=== PATIENT | female | born 2000 ===

== ENCOUNTER → 2020-04-15 10:44 | Outpatient (BNVA) | payer OTHER, SELFPAY | PROVIDERS: Visit Provider Obstetrics & Gynecology | DX: Z76.89 Persons encountering health services in other specified circumstances (principal) ==

== ENCOUNTER 2020-08-06 01:15 | Emergency (ER) | payer OTHER, SELFPAY ==
[2020-08-06 01:44] VITALS: BP 111/73; PULSE 91; RESP 15; TEMP 37.1; O2SAT 99; BMI 19.3
[2020-08-06 02:41] LABS: Basophils Percent Auto 0.4 % (0-2); Eosinophils Absolute Auto 0.1 X10*3/uL (0.0-0.4); Eosinophils Percent Auto 1.5 % (0-4); Hematocrit 36.7 % (37-47); Hemoglobin 12.5 g/dl (12.0-16.0); Imm Gran Abs Auto 0.01 X10*3/uL (0.00-0.03); Imm Gran Pct Auto 0.1 % (0.0-0.4); Lymphocytes Absolute Auto 1.7 X10*3/uL (1.2-4.9); Lymphocytes Percent Auto 25.1 % (20-40); MANUAL DIFF FLAG NO; Mean Corpuscular HGB Conc 34.1 g/dl (31.0-35.0); Mean Corpuscular Volume 96.8 fL (80-98); Mean Platelet Volume 10.4 fL (9.4-12.3); Monocytes Absolute Auto 0.4 X10*3/uL (0.1-1.2); Monocytes Percent Auto 5.2 % (2-11); Neutrophils Absolute Auto 4.6 X10*3/uL (2.0-8.3); Neutrophils Percent Auto 67.7 % (45-73); Platelet Count 261 X10*3/uL (160-400); Red Blood Count 3.79 X10*6/uL (4.20-5.50); White Blood Count 6.9 X10*3/uL (4.8-10.8)
[2020-08-06 02:43] LABS: Glucose Urine UA NEG (NEG); Leukocyte Esterase Urine NEG (NEG); Nitrite Urine NEG (NEG); PH 6.5 (5.0-8.0); Specific Gravity - Urine 1.015 (1.005-1.025); Urine Blood 3+ (NEG); Urine Ketones NEG (NEG); Urine Protein NEG (NEG-TRACE)
[2020-08-06 02:45] LABS: Appearance Urine HAZY; Color Urine YELLOW
[2020-08-06 02:50] LABS: Bacteria Urine 2+ /LPF; Mucus Urine 1+ /LPF; Squamous Epithelial Cell Urine 1+ /LPF
[2020-08-06 03:25] LABS: Alanine Aminotransferase 13 U/L (0-31); Albumin Level 4.5 g/dL (3.5-5.0); Alkaline Phosphatase 83 U/L (39-117); Anion Gap 11 (12-20); Aspartate Amino Transferase 16 U/L (5-31); Bilirubin Total 0.4 mg/dL (0.0-1.0); Blood Urea Nitrogen 11 mg/dL (9-16); Calcium 8.7 mg/dL (8.4-10.2); Carbon Dioxide 24 mmol/L (22-29); Chloride 107 mmol/L (96-108); Creatinine Clr Calc Pharmacy 95.5; Estimated Glomerular Filt Rate > 60; Glucose Random 114 mg/dL (60-115); Lipase 48 U/L (8-78); Potassium 3.5 mmol/L (3.3-5.1); Sodium 138 mmol/L (135-145); Total Protein 7.2 g/dL (6.5-8.0)
--- NOTE | 2020-08-06 03:43 | ED_ITS ---
HPI - General Adult General Chief complaint: Abdominal Pain Stated complaint: BLEEDING/ABD PAIN Time Seen by Provider: 08/06/20 01:56 Source: patient Mode of arrival: ambulatory Limitations: no limitations History of Present Illness HPI narrative: 20-year-old female who presents emergency department for [place] luation of possible and vaginal bleeding. The patient states that her last menstrual period was 06/01/2020. She did a home test on 07/28/2020 which was positive. She states that yesterday evening at 11:00 p.m. she noted blood in her underwear. She then developed lower abdominal cramping similar to menstrual cramps and a pressure-like pain in her lower back. She states that when she urinated after that she noted blood in her urine. She states that when she wiped herself she also noted blood in the vaginal area. She states that the pain was 5 to 6/10. Pain was intermittent and at the time of evaluation she had no abdominal pain.She states she does have anxiety and her symptoms did make her feel lightheaded and dizzy especially after she saw blood. She denied fever, chills, chest pain, shortness of breath, nausea, vomiting, myalgias, arthralgias, change in bowel movements Related Data Home Medications Medication Instructions Recorded Confirmed No Known Home Meds 04/15/20 08/06/20 Allergies Allergy/AdvReac Type Severity Reaction Status Date / Time No Known Allergies Allergy Verified 08/06/20 01:51 Review of Systems Review of Systems: Yes all other systems are reviewed and are negative Neurologic: Reports Abnormal speech present [facility] Past Medical History [facility] Narrative: Past medical history significant for anxiety, she denies tobacco and alcohol use, she states that she occasionally smokes marijuana. Social History Social History (Updated 04/15/20 @ 11:32 by MIAH Vargas) Alcohol intake: never Smoking Status: Never smoker Use of substances other than those prescribed or required for medical reasons: Yes Substance Use Type: Marijuana Last Used Substance: Weeks (ago) Advance Directives: No Advance Directives Information Provided: No Sexual orientation: Straight/Heterosexual Gender identity: female Physical Exam Vital Signs: Vital Signs: Last Vital Signs Temp 98.8 F 08/06/20 01:44 Pulse 84 08/06/20 04:00 Resp 15 08/06/20 04:00 BP 110/71 02/19/21 04:00 Pulse Ox 99 08/06/20 04:00 Body Mass Index 19.3 Const: General: cooperative and healthy appearing Orientatio n/consciousness: oriented to person and oriented to place Limitations: no limitations HENMT: Head: Yes normal to inspection, Yes normocephalic and Yes atraumatic Ears: external ears normal General nose exam: Normal external nose present Face and sinus: Yes normal facial exam Mouth: Normal oral and palatal mucosa present Throat: Yes posterior oropharynx normal Eyes: Periorbital: periorbital findings normal Eyelids: Yes eyelids normal Conjunctivae: conjunctivae normal Sclerae: sclerae normal Corneas: corneas normal Pupils: Equal, round and reactive pupils present Direct Ophthalmoscopy: normal light reflex Neck: Neck: Yes full ROM, Yes no lymphadenopathy, Yes no meningeal signs, Yes trachea midline and Yes supple Chest: Chest palpation & inspection: normal inspection of the chest and normal palpation of entire chest wall Resp: Effort & Inspection: normal respiratory effort and able to speak in complete sentences Auscultation: clear to auscultation bilaterally Cardio: Rate: regular rate Rhythm: regular rhythm Heart sounds: S1 normal heart sound present, S2 normal heart sound present and no murmurs GI: Inspection: Yes normal to inspection Palpation (GI): Soft to palpation, Tenderness to palpation present (GI) in the RLQ ([id number]) and suprapubicly ([id number]), no guarding, not rigid and No hepatosplenomegaly present : General: Yes no CVA tenderness Back/Spine/Pelvis: Back: no CVA tenderness Cervical Spine: normal cervical lordosis Thoracic/Lumbar Spine: thoracic and lumbar spine normal to inspection Skin: Lesions: no lesions Rashes: no rashes Wounds: no wounds Neuro: General: oriented to person, oriented to place and no meningeal signs Cranial nerves: Yes Equal, round and reactive pupils present Cognition (Neuro): normal cognition Speech: Abnormal speech present Motor exam (neuro): 5/5 motor strength present throughout Extrem: General: Yes normal to inspection and Yes full ROM Psych: Appearance: well kempt Mental Status: mental status grossly normal Speech and movement: Normal speech and movement present Affect: normal affect Attitude: cooperative Thought process: Normal thought process present Thought content: Normal thought content present Course Course Course Narrative: 20-year-old female who presents emergency department for evaluation of lower abdominal cramping, back pain and vaginal bleeding. The patient did have a positive home test her last menstrual period was on 06/01/2020. I did order laboratory evaluation on this patient to include quantitative beta-hCG and ABO type. 0436: Patient's laboratory evaluation revealed a quantitative beta-hCG of 197, which is much lower than anticipated if the patient's LMP was 06/01/2020 with an estimated gestational age of 9 weeks. The rest of the patient's laboratory evaluation was unremarkable. The patient's blood type is B positive. I did discuss this finding with the patient. There are 2 possibilities. The patient may have had a miscarriage or the patient may be early on in her . The patient does have a follow-up appointment with her OBGYN on Sunday08/09/2020. Told her that she should get a repeat quantitative beta hCG at this time. She was given printed instructions on use carriage and I did discuss possibility of an ectopic with the patient as well. Patient was discharged home. Medical Decision Making Lab Data Result diagrams: 08/06/20 02:30 08/06/20 02:30 Labs: Lab Results 08/06/20 08/06/20 08/06/20 Range/Units 02:28 02:30 02:30 WBC 6.9 (4.8-10.8) X10*3/uL RBC 3.79 L (4.20-5.50) X10*6/uL Hgb 12.5 (12.0-16.0) g/dl Hct 36.7 L (37-47) % MCV 96.8 (80-98) fL MCH 33.0 (27.0-33.0) pg MCHC 34.1 (31.0-35.0) g/dl RDW 12.0 (11.0-16.0) % Plt Count 261 (160-400) X10*3/uL MPV 10.4 (9.4-12.3) fL Immature Gran % (Auto) 0.1 (0.0-0.4) % Neut % (Auto) 67.7 (45-73) % Lymph % (Auto) 25.1 (20-40) % [place] % (Auto) 5.2 (2-11) % Eos % (Auto) 1.5 (0-4) % Baso % (Auto) 0.4 (0-2) % Lymph # (Auto) 1.7 (1.2-4.9) X10*3/uL [place] # (Auto) 0.4 (0.1-1.2) X10*3/uL Eos # (Auto) 0.1 (0.0-0.4) X10*3/uL Baso # (Auto) 0.0 (0.0-0.2) X10*3/uL Abs Immat Gran (auto) 0.01 (0.00-0.03) X10*3/uL Absolute Neuts (auto) 4.6 (2.0-8.3) X10*3/uL Absolute Nucleated RBC 0.000 (0.0-0.012) X10*3/uL Nucleated RBC % (auto) 0.0 (0.0-0.2) /100WBC Sodium 138 (135-145) mmol/L Potassium 3.5 (3.3-5.1) mmol/L Chloride 107 (96-108) mmol/L Carbon Dioxide 24 (22-29) mmol/L Anion Gap 11 L (12-20) BUN 11 (9-16) mg/dL Creatinine 0.63 (0.5-1.4) mg/dL Estim Creat Clear Calc 95.5 Estimated GFR > 60 Random Glucose 114 (60-115) mg/dL Calcium 8.7 (8.4-10.2) mg/dL Total Bilirubin 0.4 (0.0-1.0) mg/dL AST 16 (5-31) U/L ALT 13 (0-31) U/L Alkaline Phosphatase 83 (39-117) U/L Total Protein 7.2 (6.5-8.0) g/dL Albumin 4.5 (3.5-5.0) g/dL Lipase 48 (8-78) U/L Beta HCG, Quant 197 mIU/mL Urine Color Urine Appearance Urine pH (5.0-8.0) Ur Specific [place] (1.005-1.025) Urine Protein (NEG-TRACE) MG/DL Urine Glucose (UA) (NEG) MG/DL Urine Ketones (NEG) MG/DL Urine Blood (NEG) Urine Nitrite (NEG) Ur Leukocyte Esterase (NEG) Urine RBC (0) /HPF Urine WBC (0-4) /HPF Ur Squamous Epith Cells /LPF Urine Bacteria /LPF Urine Mucus /LPF Blood Type B Positive 08/06/20 Range/Units 02:30 WBC (4.8-10.8) X10*3/uL RBC (4.20-5.50) X10*6/uL Hgb (12.0-16.0) g/dl Hct (37-47) % MCV (80-98) fL MCH (27.0-33.0) pg MCHC (31.0-35.0) g/dl RDW (11.0-16.0) % Plt Count (160-400) X10*3/uL MPV (9.4-12.3) fL Immature Gran % (Auto) (0.0-0.4) % Neut % (Auto) (45-73) % Lymph % (Auto) (20-40) % [place] % (Auto) (2-11) % Eos % (Auto) (0-4) % Baso % (Auto) (0-2) % Lymph # (Auto) (1.2-4.9) X10*3/uL [place] # (Auto) (0.1-1.2) X10*3/uL Eos # (Auto) (0.0-0.4) X10*3/uL Baso # (Auto) (0.0-0.2) X10*3/uL Abs Immat Gran (auto) (0.00-0.03) X10*3/uL Absolute Neuts (auto) (2.0-8.3) X10*3/uL Absolute Nucleated RBC (0.0-0.012) X10*3/uL Nucleated RBC % (auto) (0.0-0.2) /100WBC Sodium (135-145) mmol/L Potassium (3.3-5.1) mmol/L Chloride (96-108) mmol/L Carbon Dioxide (22-29) mmol/L Anion Gap (12-20) BUN (9-16) mg/dL Creatinine (0.5-1.4) mg/dL Estim Creat Clear Calc Estimated GFR Random Glucose (60-115) mg/dL Calcium (8.4-10.2) mg/dL Total Bilirubin (0.0-1.0) mg/dL AST (5-31) U/L ALT (0-31) U/L Alkaline Phosphatase (39-117) U/L Total Protein (6.5-8.0) g/dL Albumin (3.5-5.0) g/dL Lipase (8-78) U/L Beta HCG, Quant mIU/mL Urine Color YELLOW Urine Appearance HAZY Urine pH 6.5 (5.0-8.0) Ur Specific [place] 1.015 (1.005-1.025) Urine Protein NEG (NEG-TRACE) MG/DL Urine Glucose (UA) NEG (NEG) MG/DL Urine Ketones NEG (NEG) MG/DL Urine Blood 3+ H (NEG) Urine Nitrite NEG (NEG) Ur Leukocyte Esterase NEG (NEG) Urine RBC 1-4 (0) /HPF Urine WBC 1-4 (0-4) /HPF Ur Squamous Epith Cells 1+ /LPF Urine Bacteria 2+ /LPF Urine Mucus 1+ /LPF Blood Type Discharge Plan Discharge Clinical Impression: Vaginal bleeding affecting early Patient Disposition: Home, Self-Care Instructions: Threatened Miscarriage (ED) Additional Instructions: Your quantitative beta hCG ( test that gives you a number) was 197. This is much lower than expected if your last menstrual period was actually on 06/01/2020. There are 2 possibilities for this low quantitative test. You may be having a miscarriage or you may be early on in your . You will need a repeat quantitative test when you see your OBGYN on 08/09/2020. Your CBC, comprehensive metabolic panel and urinalysis test or normal. Your blood type is B positive. Follow the threatened miscarriage instructions. Please return to the emergency department if your symptoms get worse or if you develop any new symptoms that are concerning to you. Prescriptions: No Action No Known Home Meds RF: 0
[2020-08-06 04:00] VITALS: BP 110/71; PULSE 84; RESP 15; O2SAT 99
[2020-08-06 04:21] LABS: HCG Quantitative 197 mIU/mL
== END 2020-08-06 05:01 | disposition home or self-care (01) ==
PROVIDERS: Emergency Provider Emergency Medicine Emergency Medical Services; PCP Family Medicine
DX: O20.0 Threatened abortion (principal)
CPT/HCPCS: 36415; 80053; 81001; 83690; 84702; 85025; 86900; 86901; 99283; 99285

== ENCOUNTER 2020-08-07 14:34 | Emergency (ER) | payer OTHER, SELFPAY ==
--- NOTE | ~2020-08-07 | US_ITS ---
EXAMINATION: US OBSTETRICAL ULTRASOUND CLINICAL INFORMATION: 9 weeks . Vaginal bleeding. COMPARISON: None. LMP: Unknown. TECHNIQUE: Transvaginal and transabdominal imaging of the female pelvis was performed utilizing both grayscale and color Doppler technique. FINDINGS: The uterus is anteverted. 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 No gestational sac is identified within either endometrial stripe. The endometrial stripe on average measures 0.3 cm. MATERNAL ADNEXA: The right maternal ovary measures 3.7 x 1.7 x 1.6 cm. The left maternal ovary measures 5.0 x 2.7 x 2.7 cm. Multiple follicles are seen with a dominant cyst measuring 2.0 x 1.6 x 1.7 cm. There is no significant maternal adnexal mass. No maternal pelvic ascites. US/US OB transvaginal IMPRESSION: 1. No gestational sac is identified. Correlation with beta hCG is recommended as ectopic is not excluded in this patient reportedly 9 weeks . 2. 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
--- NOTE | ~2020-08-07 | US_ITS ---
EXAMINATION: US OBSTETRICAL ULTRASOUND CLINICAL INFORMATION: 9 weeks . Vaginal bleeding. COMPARISON: None. LMP: Unknown. TECHNIQUE: Transvaginal and transabdominal imaging of the female pelvis was performed utilizing both grayscale and color Doppler technique. FINDINGS: The uterus is anteverted. 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 No gestational sac is identified within either endometrial stripe. The endometrial stripe on average measures 0.3 cm. MATERNAL ADNEXA: The right maternal ovary measures 3.7 x 1.7 x 1.6 cm. The left maternal ovary measures 5.0 x 2.7 x 2.7 cm. Multiple follicles are seen with a dominant cyst measuring 2.0 x 1.6 x 1.7 cm. There is no significant maternal adnexal mass. No maternal pelvic ascites. US/US OB <= 14 weeks fetus IMPRESSION: 1. No gestational sac is identified. Correlation with beta hCG is recommended as ectopic is not excluded in this patient reportedly 9 weeks . 2. 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
[2020-08-07 14:37] VITALS: BP 136/91; PULSE 120; RESP 18; TEMP 36.7; O2SAT 98; BMI 19.3
[2020-08-07 15:08] LABS: Glucose Urine UA NEG (NEG); Leukocyte Esterase Urine NEG (NEG); Nitrite Urine NEG (NEG); PH 6.5 (5.0-8.0); Urine Blood 3+ (NEG); Urine Ketones NEG (NEG); Urine Protein NEG (NEG-TRACE)
[2020-08-07 15:11] LABS: Appearance Urine CLEAR; Color Urine YELLOW; UPreg QC Valid YES; Urine Pregnancy POSITIVE (NEGATIVE)
[2020-08-07 15:19] LABS: Bacteria Urine 1+ /LPF; Squamous Epithelial Cell Urine 1+ /LPF; WBC Urine 0 /HPF (0-4)
[2020-08-07 16:48] LABS: MANUAL DIFF FLAG NO
[2020-08-07 16:50] LABS: Basophils Percent Auto 0.5 % (0-2); Eosinophils Absolute Auto 0.1 X10*3/uL (0.0-0.4); Eosinophils Percent Auto 1.5 % (0-4); Hematocrit 38.3 % (37-47); Hemoglobin 13.1 g/dl (12.0-16.0); Imm Gran Abs Auto 0.02 X10*3/uL (0.00-0.03); Imm Gran Pct Auto 0.3 % (0.0-0.4); Lymphocytes Absolute Auto 1.9 X10*3/uL (1.2-4.9); Lymphocytes Percent Auto 25.7 % (20-40); Mean Corpuscular HGB Conc 34.2 g/dl (31.0-35.0); Mean Corpuscular Hemoglobin 32.8 pg (27.0-33.0); Mean Corpuscular Volume 95.8 fL (80-98); Mean Platelet Volume 10.7 fL (9.4-12.3); Monocytes Absolute Auto 0.5 X10*3/uL (0.1-1.2); Neutrophils Absolute Auto 4.9 X10*3/uL (2.0-8.3); Platelet Count 269 X10*3/uL (160-400); Red Cell Distribution Width 11.9 % (11.0-16.0); White Blood Count 7.4 X10*3/uL (4.8-10.8)
[2020-08-07 17:14] LABS: Anion Gap 12 (12-20); Blood Urea Nitrogen 9 mg/dL (9-16); Calcium 9.3 mg/dL (8.4-10.2); Carbon Dioxide 25 mmol/L (22-29); Chloride 107 mmol/L (96-108); Creatinine Clr Calc Pharmacy 100.3; Estimated Glomerular Filt Rate > 60; Glucose Random 96 mg/dL (60-115); Sodium 140 mmol/L (135-145)
[2020-08-07 20:00] VITALS: BP 115/69; PULSE 105; RESP 18; TEMP 37; O2SAT 97
--- NOTE | 2020-08-07 20:05 | ED.PREGNANCY ---
HPI - General Chief complaint: Vaginal Bleeding Stated complaint: VAGINGAL BLEED Time Seen by Provider: 08/07/20 16:03 Source: patient Mode of arrival: ambulatory Limitations: no limitations History of Present Illness HPI Narrative: 20-year-old female approximately 9 weeks presents with vaginal bleeding with blood clots. Was evaluated here yesterday for similar circumstances. She was given discharge instructions for a miscarriage, she presents here because she feels that the bleeding has not subsided. Complaint: vaginal bleeding Onset (ago): day(s) (3) Pain Consistency: constant Severity: moderate Relieving factors: none Associated symptoms: vaginal bleeding Vaginal bleeding: heavy and clots Patient : Yes Related Data : 1 Para: 0 Total number of abortions (spontaneous and elective): 0 Home Medications Medication Instructions Recorded Confirmed No Known Home Meds 04/15/20 08/06/20 Allergies Allergy/AdvReac Type Severity Reaction Status Date / Time No Known Allergies Allergy Verified 08/06/20 01:51 Review of Systems Review of Systems: Constitutional: No Fever, No Chills ENT/Mouth: No sore throat, No Rhinorrhea Eyes: No Eye Pain, No Redness Cardiovascular: No Chest Pain, No SOB Respiratory: No Cough, No Sputum, No Wheezing Gastrointestinal: positive Nausea, No Vomiting, No Diarrhea, positive abdominal pain, Genitourinary: positive irregular bleeding, No Dysuria, No Urinary Frequency, positive pelvic pain Musculoskeletal: No Myalgias Skin: No rash Neuro: No Weakness, No Headache Psych: No Anxiety/Panic, No Depression Heme/Lymph: No bruising, No Lymphadenopathy Endocrine: No Polyuria, No Polydipsia Yes all other systems are reviewed and are negative [facility] Past Medical History Attestation statement: The following information was validated with the patient. Source: old records reviewed : 1 Para: 0 Total number of abortions (spontaneous and elective): 0 Social History Social History Alcohol intake: never Smoking Status: Never smoker Substance Use Type: Marijuana Sexual orientation: Straight/Heterosexual Gender identity: female Physical Exam Vital Signs: Vital Signs: Last Vital Signs Temp 99.2 F 08/07/20 23:43 Pulse 109 H 08/07/20 23:43 Resp 18 08/07/20 23:43 BP 131/84 08/07/20 23:43 Pulse Ox 98 08/07/20 23:43 Body Mass Index 19.3 Appearance: Alert. Oriented X3. No acute distress. Eyes: Pupils equal, round and reactive to light. ENT: Pharynx normal. Neck: Normal inspection. Neck supple. CVS: Normal heart rate and rhythm. Pulses normal. Respiratory: No respiratory distress. Breath sounds normal. Abdomen: Soft and nontender. Skin: Skin warm and dry. Normal skin color. Normal skin turgor. Extremities: No lower extremity edema. Neuro: No motor deficit. No sensory deficit. : External Female Exam: normal external appearance and normal appearance of the urethra Speculum Exam - Vagina: normal appearance of the vagina, normal palpation, no foreign bodies, no lacerations, no lesions, vaginal bleeding and No tissue present in vagina Speculum Exam - Cervix: normal appearance of the cervix, Cervical os closed, Nulliparous cervix present and nontender Bimanual exam- vagina & uterus: normal palpation, No Cervical tenderness present and no cervical motion tenderness Bimanual Exam- Adnexa, other: normal adnexae OB/external & speculum: vaginal bleeding; no foreign bodies and no tissue noted in vagina Course Course Course Narrative: 20-year-old female presents for a 2nd time this week for vaginal bleeding. Was seen yesterday for 1st trimester vaginal bleeding, exam and findings suggestive of miscarriage. Patient presents because bleeding and pain continues. Pelvic exam completed, RN at bedside as rail crew member, trichomoniasis, CT NG, and BV specimens collected. Plan is for Ob transvaginal first-trimester ultrasound. Ultrasound shows no intrauterine , no adnexal masses. Patient's presentation is highly suspicious of complete . Discussion with Dr. Mattson, repeat quant is 49, plan is for patient to follow-up with Dr Carey in 48 hours. Patient verbalized understanding of and agrees plan of care. Consultations Consultation #1: Srinivasan Time: 11:05 MDM - OB/Uterine Contractions MDM Narrative Medical decision making narrative: First trimester bleeding, threatened , complete Medical Records Attestation: I reviewed the patient's medical records. Lab Data Attestation: I reviewed the patient's lab results. Result diagrams: 08/07/20 16:23 08/07/20 16:23 Labs: Lab Results 08/07/20 08/07/20 08/07/20 Range/Units 14:57 16:23 16:23 WBC 7.4 (4.8-10.8) X10*3/uL RBC 4.00 L (4.20-5.50) X10*6/uL Hgb 13.1 (12.0-16.0) g/dl Hct 38.3 (37-47) % MCV 95.8 (80-98) fL MCH 32.8 (27.0-33.0) pg MCHC 34.2 (31.0-35.0) g/dl RDW 11.9 (11.0-16.0) % Plt Count 269 (160-400) X10*3/uL MPV 10.7 (9.4-12.3) fL Immature Gran % (Auto) 0.3 (0.0-0.4) % Neut % (Auto) 66.0 (45-73) % Lymph % (Auto) 25.7 (20-40) % [place] % (Auto) 6.0 (2-11) % Eos % (Auto) 1.5 (0-4) % Baso % (Auto) 0.5 (0-2) % Lymph # (Auto) 1.9 (1.2-4.9) X10*3/uL [place] # (Auto) 0.5 (0.1-1.2) X10*3/uL Eos # (Auto) 0.1 (0.0-0.4) X10*3/uL Baso # (Auto) 0.0 (0.0-0.2) X10*3/uL Abs Immat Gran (auto) 0.02 (0.00-0.03) X10*3/uL Absolute Neuts (auto) 4.9 (2.0-8.3) X10*3/uL Absolute Nucleated RBC 0.000 (0.0-0.012) X10*3/uL Nucleated RBC % (auto) 0.0 (0.0-0.2) /100WBC Sodium 140 (135-145) mmol/L Potassium 4.0 (3.3-5.1) mmol/L Chloride 107 (96-108) mmol/L Carbon Dioxide 25 (22-29) mmol/L Anion Gap 12 (12-20) BUN 9 (9-16) mg/dL Creatinine 0.60 (0.5-1.4) mg/dL Estim Creat Clear Calc 100.3 Estimated GFR > 60 Random Glucose 96 (60-115) mg/dL Calcium 9.3 D (8.4-10.2) mg/dL Beta HCG, Quant 49 mIU/mL Urine Color YELLOW Urine Appearance CLEAR Urine pH 6.5 (5.0-8.0) Ur Specific [place] 1.010 (1.005-1.025) Urine Protein NEG (NEG-TRACE) MG/DL Urine Glucose (UA) NEG (NEG) MG/DL Urine Ketones NEG (NEG) MG/DL Urine Blood 3+ H (NEG) Urine Nitrite NEG (NEG) Ur Leukocyte Esterase NEG (NEG) Urine RBC 1-4 (0) /HPF Urine WBC 0 (0-4) /HPF Ur Squamous Epith Cells 1+ /LPF Urine Bacteria 1+ /LPF Urine Test POSITIVE H (NEGATIVE) Imaging Data OB 1st trimester pelvic ultrasound: Attestation: I personally reviewed and interpreted this imaging study as follows: Radiologist's impression: EXAMINATION: US OBSTETRICAL ULTRASOUND CLINICAL INFORMATION: 9 weeks . Vaginal bleeding. COMPARISON: None. LMP: Unknown. TECHNIQUE: Transvaginal and transabdominal imaging of the female pelvis was performed utilizing both grayscale and color Doppler technique. FINDINGS: The uterus is anteverted. 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 No gestational sac is identified within either endometrial stripe. The endometrial stripe on average measures 0.3 cm. MATERNAL ADNEXA: The right maternal ovary measures 3.7 x 1.7 x 1.6 cm. The left maternal ovary measures 5.0 x 2.7 x 2.7 cm. Multiple follicles are seen with a dominant cyst measuring 2.0 x 1.6 x 1.7 cm. There is no significant maternal adnexal mass. No maternal pelvic ascites. US/US OB <= 14 weeks fetus IMPRESSION: 1. No gestational sac is identified. Correlation with beta hCG is recommended as ectopic is not excluded in this patient reportedly 9 weeks . 2. 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 Discharge Plan Discharge Clinical Impression: Complete Patient Disposition: Home, Self-Care Instructions: Miscarriage (ED) Additional Instructions: You were evaluated for vaginal bleeding with 1st trimester . Ultrasound indicates that you have had a complete miscarriage. You must follow-up with OBGYN in 48 hours. Your hCG beta quant on August 06 was 149, on August 07 level was 49. Your blood type is B positive. Please follow-up with Dr Mattson on Sunday. Thank you for choosing this emergency department for evaluation. Please follow-up with primary care physician as needed. Return to the emergency department for any new, concerning, or worsening symptoms. Prescriptions: No Action No Known Home Meds RF: 0 Referrals: Matthew Mattson MD [Physician] - 2 days (Complete ) Interventions: ED Discharge Assessment Last Done: 08/07/20 23:50 Discharge Date/Time: 08/07/20 23:51
[2020-08-07 22:12] VITALS: BP 125/76; PULSE 96; RESP 18; TEMP 37; O2SAT 99
--- NOTE | 2020-08-07 23:14 | P.CONOB_ITS ---
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 The patient came yesterday emergency room with bleeding and cramping and passed large amount of blood clots. HCG was done yesterday was 174 repeat hCG today dropped to 48. blood type is Rh positive. Since then the bleeding has slowed down and cramping is better cc:: CC: [facility] - Review of Systems Review of Systems ROS Unobtainable: All systems reviewed & are unremarkable except as noted in HPI and below OB PMFSH Social History Social History Alcohol intake: never Smoking Status: Never smoker Use of substances other than those prescribed or required for medical reasons: No Substance Use Type: Marijuana Advance Directives: No Advance Directives Information Provided: Yes Sexual orientation: Straight/Heterosexual Gender identity: female Meds Allergies Allergy/AdvReac Type Severity Reaction Status Date / Time No Known Allergies Allergy Verified 08/06/20 01:51 Home Medications Medication Instructions Recorded Confirmed Last Taken Type No Known Home Meds 04/15/20 08/06/20 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 Physical Exam Vitals Vital signs: Temp Pulse Resp BP Pulse Ox 98.6 F 96 18 125/76 99 08/07/20 22:12 08/07/20 22:12 08/07/20 22:12 08/07/20 22:12 08/07/20 22:12 Body Mass Index 19.3 Abdomen Auscultation/Inspection/Palpation: Other (Abdominal exam benign nontender no rebound per Maira Kerr NP) Additional Comments: Normal exam minimal blood per vagina no adnexal or uterine tenderness per Maira Kerr NP [employer]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 Labs CBC & Chem 7: 08/07/20 16:23 08/07/20 16:23 Labs: Short CBC 08/07/20 Range/Units 16:23 WBC 7.4 (4.8-10.8) X10*3/uL Hgb 13.1 (12.0-16.0) g/dl Hct 38.3 (37-47) % Plt Count 269 (160-400) X10*3/uL BMP 08/07/20 16:23 Sodium 140 Potassium 4.0 Chloride 107 Carbon Dioxide 25 BUN 9 Creatinine 0.60 Calcium 9.3 D Urine 08/07/20 Range/Units 14:57 Urine Color YELLOW Urine Appearance CLEAR Urine pH 6.5 (5.0-8.0) Ur Specific [place] 1.010 (1.005-1.025) Urine Protein NEG (NEG-TRACE) MG/DL Urine Glucose (UA) NEG (NEG) MG/DL Urine Test POSITIVE H (NEGATIVE) Assessment and Plan (1) Complete : Status: Acute Repeat hCG today is suggestive of complete SAB, Recommends hCG in 48 hours and follow-up in the office for evaluation and instructions to be given to the patient to call if pain or bleeding recurs to come back to the emergency room for evaluation prior to Sunday
[2020-08-07 23:33] LABS: HCG Quantitative 49 mIU/mL
[2020-08-07 23:43] VITALS: BP 131/84; PULSE 109; RESP 18; TEMP 37.3; O2SAT 98
[2020-08-08 08:50] LABS: CT PCR NOT DETECTED (Not Detect.); NG PCR NOT DETECTED (Not Detect.)
[2020-08-08 09:10] LABS: BV Int Neg Control Negative (Negative); BV Int Pos Control Positive (Positive)
== END 2020-08-07 23:51 | disposition home or self-care (01) ==
PROVIDERS: Nurse Practitioner Family; Emergency Provider Internal Medicine; PCP Family Medicine
DX: O03.9 Complete or unspecified spontaneous abortion without complication (principal); Z3A.09 9 weeks gestation of pregnancy
CPT/HCPCS: 36415; 76801; 76817; 80048; 81001; 81025; 84702; 85025; 87480; 87491; 87510; 87591; 87660; 99283; 99284

== ENCOUNTER 2020-08-09 12:08 | Outpatient (REF) | payer OTHER, SELFPAY ==
[2020-08-09 14:14] LABS: HCG Quantitative 13 mIU/mL
== END 2020-08-09 12:09 | disposition home or self-care (01) ==
LOC: HO.LAB 12:08
PROVIDERS: Visit Provider Obstetrics & Gynecology
DX: O03.9 Complete or unspecified spontaneous abortion without complication (principal); Z3A.00 Weeks of gestation of pregnancy not specified
CPT/HCPCS: 36415; 84702; 99212

== ENCOUNTER 2020-08-23 14:50 | Outpatient (REF) | payer OTHER, SELFPAY ==
[2020-08-23 16:01] LABS: HCG Quantitative < 2 mIU/mL
== END 2020-08-23 14:51 | disposition home or self-care (01) ==
LOC: HO.LAB 14:50
PROVIDERS: PCP Family Medicine; Visit Provider Advanced Practice Midwife
DX: O03.9 Complete or unspecified spontaneous abortion without complication (principal)
CPT/HCPCS: 36415; 84702

== ENCOUNTER → 2020-11-02 15:44 | Outpatient (BNVA) | payer OTHER, SELFPAY | PROVIDERS: PCP Family Medicine; Visit Provider Advanced Practice Midwife ==

== ENCOUNTER 2020-12-01 09:35 | Outpatient (REF) | payer OTHER, SELFPAY ==
[2020-12-01 13:49] LABS: CT PCR NOT DETECTED (Not Detect.); NG PCR NOT DETECTED (Not Detect.)
== END 2020-12-01 09:36 | disposition home or self-care (01) ==
LOC: HO.LAB 09:35
PROVIDERS: PCP Family Medicine; Visit Provider Advanced Practice Midwife
DX: Z01.419 Encounter for gynecological examination (general) (routine) without abnormal findings (principal); Z11.3 Encounter for screening for infections with a predominantly sexual mode of transmission; Z20.2 Contact with and (suspected) exposure to infections with a predominantly sexual mode of transmission
CPT/HCPCS: 81025; 87491; 87591

== ENCOUNTER 2021-12-05 13:33 | Outpatient (REF) | payer OTHER, SELFPAY ==
[2021-12-06 06:04] LABS: CT PCR NOT DETECTED (Not Detect.); NG PCR NOT DETECTED (Not Detect.)
== END 2021-12-05 13:34 | disposition home or self-care (01) ==
LOC: HO.LAB 13:33
PROVIDERS: Visit Provider Advanced Practice Midwife
DX: Z01.419 Encounter for gynecological examination (general) (routine) without abnormal findings (principal); Z20.2 Contact with and (suspected) exposure to infections with a predominantly sexual mode of transmission
CPT/HCPCS: 87491; 87591; 88142

== ENCOUNTER 2022-12-07 13:11 | Outpatient (REF) | payer MEDICAID, SELFPAY ==
[2022-12-08 05:05] LABS: Syphilis Screen Nonreactive (Nonreactive)
[2022-12-08 05:22] LABS: HBc Num1 0.07 S/CO (0.00-0.79); HIV AB/AG Nonreactive (Nonreactive); HIV Num 1 0.08 S/CO (0.00-0.99); Hepatitis B Core Antibody Nonreactive (Nonreactive); ~HepC Num1 0.09 S/CO (0.00-0.79); ~Hepatitis C Antibody Nonreactive (Nonreactive)
== END 2022-12-07 13:12 | disposition home or self-care (01) ==
LOC: CF 13:11
PROVIDERS: PCP Family Medicine; Visit Provider Advanced Practice Midwife
DX: Z11.4 Encounter for screening for human immunodeficiency virus [HIV] (principal); Z20.2 Contact with and (suspected) exposure to infections with a predominantly sexual mode of transmission
CPT/HCPCS: 36415; 86704; 86780; 86803; 87389

== ENCOUNTER 2023-12-11 14:12 | Outpatient (AMB) | payer MEDICAID, SELFPAY ==
[2023-12-11 14:14] VITALS: BP 116/64; BMI 26.1
--- NOTE | 2023-12-11 14:14 | A.OFFVIS_ITS ---
Vital Signs 12/11/23 14:14 Height 4 ft 11 in Weight 129 lb 6 oz BMI 26.1 BP 116/64 Blood Pressure Location Rt brachial Position Sitting Intake Visit Reasons: Annual Allergies No Known Allergies Allergy (Verified 12/11/23 14:16) Is last menstrual period known: Yes HPI Comments Details: She is a premenopausal woman presenting for annual examination. Doing well with no concerns. She tries to eat healthy and stays active with exercise. Hx: PCOS, bleeds irregular, stopped OCP's 6-7 months ago. Seen by her PCP and was recently treated with Provera but did not start the prescription yet., she is interested in going back onto Apri. She denies any contraindications to control such as: migraines with aura, history of DVT or pulmonary emboli, high blood pressure, liver disease, thrombolic disorders, Lupus, +DAY, breast cancer, or smoking. Currently is sexually active same partner 10 years. She denies vaginal itching and irritation. STI screening offered; she declines. Denies family history of breast or colon cancer. Family history of ovarian cancer, distant relative. Last pap smear 2021, negative. 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 Sexual orientation: Straight/Heterosexual Gender identity: Female Female Reproductive History Menstrual control method: none Total pregnancies: 1 Ab spontaneous: 1 Date of last pap smear: 12/06/21 History of abnormal pap smear: No History of STI: No Review of Systems Const All systems reviewed & are unremarkable except as noted in HPI and below Reports as per HPI Eyes Reports no additional complaints ENT Reports no additional complaints Card Reports no additional complaints Resp Reports no additional complaints GI Reports as per HPI and Reports no additional complaints Reports as per HPI Musc Reports no additional complaints Skin/Breast Reports as per HPI Neuro Reports no additional complaints Psych Reports no additional complaints Endo Reports no additional complaints Edgar/Lymph Reports no additional complaints Aller/Immun Reports no additional complaints Physical Exam Vital Signs: Last Vital Signs BP 116/64 12/11/23 14:14 BMI result Body Mass Index 26.1 Const General: cooperative, healthy appearing, no acute distress, well developed and alert Orientation/consciousness: patient oriented x3 HEENT Head: Yes normal to inspection Eyes General: appearance normal, both eyes and all related structures Neck Neck: Yes normal visual inspection Thyroid: Thyroid normal Chest Chest palpation & inspection: normal inspection of the chest and other (no puckering, dimpling, peau de orange, retraction, discharge, masses) Breast/axilla inspection: normal inspection of the breasts Breast/axilla palpation: normal palpation of the breasts Resp Effort & Inspection: normal respiratory effort GI Inspection: Yes normal to inspection Palpation (GI): Soft to palpation Rectal Exam - Female: deferred General: Yes bladder normal to palpation External Female Exam: normal external appearance and normal appearance of the urethra Speculum Exam - Vagina: normal appearance of the vagina, normal palpation and normal vaginal discharge Speculum Exam - Cervix: normal appearance of the cervix and normal palpation Bimanual exam- vagina & uterus: normal bimanual exam, normal palpation, uterine size normal, bladder normal to palpation, normal palpation and non-tender Bimanual Exam- Adnexa, other: no masses Skin General skin exam: no rashes or lesions noted Rashes: no rashes Neuro General: patient oriented x3 Cognition (Neuro): normal cognition Extrem General: Yes normal to inspection Psych Attitude: cooperative Thought process: Normal thought process present Results AMB Test Urine AMB Test Urine Negative Last Edit by Renee Vargas CMA on 12/11/23 14:23 Results Reviewed Results Reviewed: Laboratory Last Values Tst Clinic Negative 12/11/23 14:23 Assessment & Plan Assessment & Plan (1) Encounter for well woman exam with routine gynecological exam: Code(s): Z01.419 - Encounter for gynecological examination (general) (routine) without abnormal findings Category: Medical Plan: Discussed: Current recommendations for pap smears per ASCCP guidelines. Breast awareness and periodic breast exams. Maintain a healthy lifestyle including a well balanced diet and routine exercise. Discussed restarting her control and she will jump start no unprotected intercourse for 2 weeks, obtain a test, if negative start the control and use a backup method for 7 days. If positive then come back in the office immediately. control hormone use warnings: go to ER if and loss of vision, blindness, severe headache, chest pain or difficulty breathing, severe abdominal pain, or any pain or swelling in an extremity. Informed not to be taken along with the Provera her primary care has given her. Patient verbalizes understanding and agrees to the plan of care. She was given opportunity to ask questions and all questions were answered to the best of my ability. RTO in one year for annual urban and regional planner examination. This note is constructed using voice recognition software. While every effort has been made to ensure accuracy, software support representative errors may have been included. Orders: Orders AMB HCG Urine Test Today Z32.02 - Encounter for test, result negative Medications: New desogestrel-ethinyl estradiol 0.15-0.03 mg (Apri) 1 tab PO DAILY 90 days 90 tabs 4RF Coding Level of Care Code Est Pt Prev Care 18-39y(50561) Diagnoses Encounter for well woman exam with routine gynecological exam Z01.419
== END 2023-12-11 14:56 | disposition home or self-care (01) ==
PROVIDERS: PCP Family Medicine; Visit Provider Advanced Practice Midwife
DX: Z32.02 Encounter for pregnancy test, result negative (principal); Z01.419 Encounter for gynecological examination (general) (routine) without abnormal findings
CPT/HCPCS: 99395

== ENCOUNTER → 2023-12-11 14:12 | Outpatient (BNVA) | payer MEDICAID, SELFPAY | PROVIDERS: PCP Family Medicine; Visit Provider Advanced Practice Midwife | DX: Z01.419 Encounter for gynecological examination (general) (routine) without abnormal findings (principal) | CPT/HCPCS: 81025; 99395 ==

== ENCOUNTER 2024-05-19 16:04 | Outpatient (REF) | payer OTHER, SELFPAY ==
[2024-05-19 17:55] LABS: Iron 168 mcg/dL (30-160); Percent Iron Saturation 44 % (15-50); Total Iron Binding Capacity 384 mcg/dL (228-428); Unsaturated Iron Binding 216 ug/dL
[2024-05-19 18:10] LABS: Ferritin 33 ng/mL (10-122); TSH reflex Free T4 2.31 uIU/mL (0.32-4.0); Vitamin D 25-OH Total 16.1 ng/mL (>30)
[2024-05-19 18:15] LABS: Vitamin B12 479 pg/mL (200-900)
== END 2024-05-19 16:05 | disposition home or self-care (01) ==
LOC: HO.LAB 16:04
PROVIDERS: PCP Family Medicine; Visit Provider Family Medicine
DX: E55.9 Vitamin D deficiency, unspecified (principal); F41.1 Generalized anxiety disorder
CPT/HCPCS: 36415; 82306; 82607; 82728; 83540; 84443